=== PATIENT | female | born 1985 | race Caucasian/White ===

== ENCOUNTER 2019-01-25 18:54 | Emergency (ER) | payer MEDICAID ==
[~2019-01-25] VITALS: Ht 165.1 cm; Wt 77.7 kg
[2019-01-25 19:07] VITALS: Ht 165.1 cm; Wt 77.7 kg
--- NOTE | 2019-01-25 20:19 | ERD ---
ER Documentation Chief Complaint Chief Complaint fever/body aches x 3 days. also c/o sore throat HPI 33-year-old female, presents to the emergency department, complaining of acute onset of high fever, runny nose, chest congestion, dry cough and general malaise that started 3 days ago. The patient has been receiving [id number] medications without improvement of the symptoms. Otherwise, no shortness of breath, no rashes, no diarrhea or constipation. ROS All systems reviewed and are negative except as per history of present illness. Medications Home Meds Active Scripts Ibuprofen* (Motrin*) 600 Mg Tab, 600 MG PO Q8, #15 TAB Prov:GINO SCHWARTZ MD 01/25/19 Ciprofloxacin Hcl* (Ciprofloxacin Hcl*) 250 Mg Tablet, 250 MG PO BID for 7 Days, #14 TAB Prov:GINO SCHWARTZ MD 01/25/19 Allergies Allergies: Coded Allergies: No Known Allergy (Unverified , 01/25/19) PMhx/Soc History of Surgery: Yes Anesthesia Reaction: No Hx Neurological Disorder: No Hx Respiratory Disorders: No Hx Cardiac Disorders: No Hx Psychiatric Problems: No Hx Miscellaneous Medical Probl: No Hx Alcohol Use: No Hx Substance Use: No Hx Tobacco Use: No FmHx Family History: No diabetes, No coronary disease Physical Exam Vitals Vital Signs Date Temp Pulse Resp B/P (MAP) Pulse Ox O2 O2 Flow FiO2 Time Delivery Rate 01/25/19 99.2 72 18 119/65 100 Room Air 23:10 (83) 01/25/19 103.8 20:41 01/25/19 103.8 20:41 01/25/19 102.7 112 18 120/63 100 19:07 (82) Physical Exam Const: No acute distress Head: Atraumatic Eyes: Normal Conjunctiva ENT: Normal External Ears, Nose and Mouth. Neck: Full range of motion. No meningismus. Resp: Clear to auscultation bilaterally Cardio: Regular rate and rhythm, no murmurs Abd: Soft, non tender, non distended. Normal bowel sounds Skin: No petechiae or rashes Back: No midline or flank tenderness Ext: No cyanosis, or edema Neur: Awake and alert Psych: Normal Mood and Affect Results 24 hrs Laboratory Tests Test 01/25/19 20:36 01/25/19 20:39 POC Beta HCG, Qualitative NEGATIVE Urine Color YELLOW Urine Clarity SLIGHTLY CLOUDY Urine pH 6.0 Urine Specific [place] 1.006 Urine Ketones NEGATIVE mg/dL Urine Nitrite NEGATIVE mg/dL Urine Bilirubin NEGATIVE mg/dL Urine Urobilinogen NEGATIVE mg/dL Urine Leukocyte Esterase 2+ Stephanie/ul Urine Microscopic RBC 5 /HPF Urine Microscopic WBC 29 /HPF Urine Squamous Epithelial Cells FEW /HPF Urine Amorphous Crystals FEW /HPF Urine Bacteria FEW /HPF Urine Hemoglobin 3+ mg/dL Urine Glucose NEGATIVE mg/dL Urine Total Protein NEGATIVE mg/dl Current Medications Medications Dose Sig/Hiram Start Time Status Last (Trade) Ordered Route PRN Stop Time Admin Dose Reason Admin Sodium 500 ml @ Q1H STAT 01/25/19 DC 01/25/19 Chloride 500 mls/hr IV 20:34 20:39 01/25/19 21:33 1,000 mg ONCE STAT 01/25/19 DC 01/25/19 Acetaminophen PO 20:34 20:41 (Tylenol 01/25/19 20:37 Tab) Ibuprofen 600 mg ONCE STAT 01/25/19 DC 01/25/19 (Motrin) PO 20:34 20:41 01/25/19 20:37 Ceftriaxone 50 ml @ ONCE ONCE 01/25/19 DC 01/25/19 Sodium 100 mls/hr IVPB 22:00 21:40 01/25/19 22:29 Procedures/MDM At the time of discharge, vital signs stable, patient nontoxic. Differential diagnosis include but not limited to: UTI, colitis, gastroenteritis, kidney stones, irritable bowel syndrome, inflammatory bowel syndrome, malabsorption syndrome, cholelithiasis, food intolerance, medication side effect, pancreatitis, diverticulitis, bowel obstruction. Low suspicion for acute abdomen Physical examination and clinical presentation consistent most likely with acute uncomplicated pyelonephritis. During the ED course the patient remained stable, no new complaints. The patient received treatment with IV fluids and IV Rocephin presenting overall improvement of the symptoms. Results and clinical impression discussed with patient who agrees with management. The patient is stable to be treated outpatient and will be discharged home, some side effects of prescribed medications (headache, rash, nausea, vomiting, diarrhea, drowsiness, habituation, bleeding, hypertension, interactions with other medications) were reviewed. The patient was instructed to follow up with the primary care provider in the next 48h. If symptoms persist, worsen or new symptoms develop, then patient s hould return to the ED immediately. Instructions explained and given directly by me to the patient with acknowledgment and demonstrated understanding. Disclaimer: Inadvertent spelling and grammatical errors are likely due to EHR/dictation software use and do not reflect on the overall quality of patient care. Also, please note that the electronic time recorded on this note does not necessarily reflect the actual time of the patient encounter. Departure Diagnosis: Primary Impression: Pyelonephritis Condition: Stable Patient Instructions: Understanding Urinary Tract Infections (UTIs) Additional Instructions: Thank you very much for allowing us to participate in your care. Your health and safety is our top priority at [facility]. Call your primary care doctor TOMORROW for an appointment during the next 2-4 days and bring all the information and medications prescribed. Have prescriptions filled and follow precisely the directions on the label. If the symptoms get worse and your provider is unavailable, return to the Emergency Department immediately. GINO SCHWARTZ MD Jan 25, 2019 20:19
[2019-01-25] MEDS ORDERED: IBUPROFEN 600 MG TAB PO STA (20:34)
[2019-01-25] MEDS ORDERED: ACETAMINOPHEN 500 MG TAB PO STA (20:34)
[2019-01-25] MEDS ORDERED: SOD CHLORIDE 0.9% 500 ML IV STA (20:34)
[2019-01-25] MEDS ORDERED: CEFTRIAXONE 1 GM/50 ML (PMX) 50 ML IVPB ONE (22:00)
[2019-01-25] MEDS ORDERED: CIPR-193 PO (22:34)
[2019-01-25] MEDS ORDERED: IBUP-1542 PO (22:34)
[2019-01-25 23:10] VITALS: BP 119/65; PULSE 72; RESP 18
== END 2019-01-25 23:11 | disposition home or self-care (01) ==
LOC: FTE 18:54
DX: N12 Tubulo-interstitial nephritis, not specified as acute or chronic (principal)
CPT/HCPCS: 81001; 81025; 87086; 87400; 96361; 96374; J0696; J7030; Z7502; Z7610